=== PATIENT | male | born 1980 | race Caucasian/White ===

== ENCOUNTER 2018-09-22 20:04 | Emergency (ER) | payer MEDICAID ==
[~2018-09-22] VITALS: Ht 188 cm; Wt 128.0 kg
[2018-09-23] MEDS ORDERED: KETOROLAC 30MG/ML VIAL IM ONE (02:15)
[2018-09-23 04:41] VITALS: BP 136/97
== END 2018-09-23 04:44 | disposition home or self-care (01) ==
LOC: ER 20:04
DX: M54.89 Other dorsalgia (principal)
CPT/HCPCS: 93971; 96372; 99284; J1885; Z7610